=== PATIENT | female | born 1965 | race Caucasian/White ===

== ENCOUNTER 2021-09-01 23:49 | Emergency (ER) | payer BC ==
[~2021-09-01] VITALS: Ht 162.5 cm; Wt 127.0 kg
[2021-09-02] MEDS ORDERED: SEPTDS PO (00:22)
== END 2021-09-02 00:26 | disposition home or self-care (01) ==
LOC: ED 23:49
DX: L03.115 Cellulitis of right lower limb (principal)

== ENCOUNTER → 2021-09-02 | Outpatient (CLI) | payer BC ==
[~2021-09-02] MED LIST: SEPTDS PO
== END | disposition home or self-care (01) ==
LOC: US 13:55
PROVIDERS: ATTEND Emergency Medicine
DX: I82.5Z1 Chronic embolism and thrombosis of unspecified deep veins of right distal lower extremity (principal)

== ENCOUNTER 2023-07-25 11:42 | Emergency (ER) | payer BC ==
[~2023-07-25] VITALS: Ht 162.5 cm; Wt 158.8 kg
[2023-07-25] MEDS ORDERED: CYCLOBENZAPRINE5 M3 PO (11:56)
[2023-07-25] MEDS ORDERED: HYDROCODONE-AC1 EAC2 PO (11:56)
[2023-07-25] MEDS ORDERED: DERMACINRX LID1 EACH T (11:57)
[2023-07-25] MEDS ORDERED: [UNRECOGNIZED DRUG - OTHER] SQ (11:57)
[2023-07-25] MEDS ORDERED: DULOXETINE HCL60 MG PO (11:57)
[2023-07-25] MEDS ORDERED: NAPROXEN500 MG PO (11:57)
[2023-07-25] MEDS ORDERED: LEVOTHYROXINE150 MCG PO (11:57)
[2023-07-25] MEDS ORDERED: Ketorolac Tromethamine 30 MG/ML VIAL IM ONE (12:10)
[2023-07-25 12:24] LABS: BASO % 0.3 % (0.0-1.0); EOS # 0.2 10*3/uL (0.0-0.4); EOS % 2.6 % (1.0-4.0); HEMATOCRIT 45.9 % (37.0-47.0); LYMPH # 1.5 10*3/uL (1.3-4.4); LYMPH % 17.2 % (27.0-41.0); MEAN CELL VOLUME 101.3 fl (81.0-99.0); MEAN CORPUSCULAR HGB 32.7 pg (27.0-31.0); MEAN CORPUSCULAR HGB CONC 32.2 g/dl (33.0-37.0); MEAN PLATELET VOLUME 9.1 fl (9.6-12.3); MONO # 0.8 10*3/uL (0.1-1.0); MONO % 9.1 % (3.0-9.0); NEUT # 6.3 10*3/uL (2.3-7.9); NEUT % 69.9 % (47.0-73.0); PLATELET COUNT AUTOMATED 187 10*3/uL (130-400); RED BLOOD COUNT 4.53 10*6/uL (4.10-5.10); RED CELL DISTRI WIDTH 13.5 % (0-14.5); WHITE BLOOD COUNT 8.9 10*3/uL (4.8-10.8)
[2023-07-25 12:45] LABS: BUN 20 mg/dl (9-23); CHLORIDE 101 mmol/L (98-107); POTASSIUM 4.7 mmol/L (3.4-5.1)
[2023-07-25] MEDS ORDERED: NAPROSYN500 MG PO (14:22)
[2023-07-25] MEDS ORDERED: ZANAFLEX4 MG PO (14:22)
== END 2023-07-25 14:33 | disposition home or self-care (01) ==
LOC: ED 11:42
PROVIDERS: Nurse Practitioner Family
DX: S20.212A Contusion of left front wall of thorax, initial encounter (principal); Z20.822 Contact with and (suspected) exposure to COVID-19; J06.9 Acute upper respiratory infection, unspecified; Z88.5 Allergy status to narcotic agent; Z86.718 Personal history of other venous thrombosis and embolism; X58.XXXA Exposure to other specified factors, initial encounter; Y93.89 Activity, other specified; Y92.89 Other specified places as the place of occurrence of the external cause; Y99.8 Other external cause status

== ENCOUNTER 2023-10-19 19:23 | Emergency (ER) | payer BC ==
[~2023-10-19] VITALS: Ht 162.5 cm; Wt 163.3 kg
[~2023-10-19 19:23] MED LIST changes: +CYCLOBENZAPRINE5 M3 PO; +DERMACINRX LID1 EACH T; +DULOXETINE HCL60 MG PO; +HYDROCODONE-AC1 EAC2 PO; +LEVOTHYROXINE150 MCG PO; +NAPROSYN500 MG PO; +NAPROXEN500 MG PO; +ZANAFLEX4 MG PO; +[UNRECOGNIZED DRUG - OTHER] SQ
[2023-10-19] MEDS ORDERED: HYDROCODONE-AC1 EAC2 PO (19:43)
[2023-10-19] MEDS ORDERED: HYDROCODONE-AC1 EAC1 PO (21:40)
== END 2023-10-19 21:56 | disposition home or self-care (01) ==
LOC: ED 19:23
DX: S80.02XA Contusion of left knee, initial encounter (principal); S50.02XA Contusion of left elbow, initial encounter; Z88.5 Allergy status to narcotic agent; Z79.899 Other long term (current) drug therapy; W18.09XA Striking against other object with subsequent fall, initial encounter; Y93.89 Activity, other specified; Y92.89 Other specified places as the place of occurrence of the external cause; Y99.8 Other external cause status

== ENCOUNTER → 2023-10-26 | Outpatient (CLI) | payer BC ==
[~2023-10-26] MED LIST changes: +HYDROCODONE-AC1 EAC1 PO
[2023-10-26 16:00] LABS: BASO % 0.4 % (0.0-1.0); EOS # 0.2 10*3/uL (0.0-0.4); EOS % 3.1 % (1.0-4.0); HEMATOCRIT 35.4 % (37.0-47.0); LYMPH # 1.6 10*3/uL (1.3-4.4); LYMPH % 20.8 % (27.0-41.0); MEAN CORPUSCULAR HGB 33.8 pg (27.0-31.0); MEAN CORPUSCULAR HGB CONC 31.9 g/dl (33.0-37.0); MEAN PLATELET VOLUME 9.6 fl (9.6-12.3); MONO # 0.7 10*3/uL (0.1-1.0); MONO % 9.5 % (3.0-9.0); NEUT # 5.1 10*3/uL (2.3-7.9); NEUT % 65.6 % (47.0-73.0); PLATELET COUNT AUTOMATED 171 10*3/uL (130-400); RED BLOOD COUNT 3.34 10*6/uL (4.10-5.10); RED CELL DISTRI WIDTH 15.6 % (0-14.5); WHITE BLOOD COUNT 7.8 10*3/uL (4.8-10.8)
== END | disposition home or self-care (01) ==
LOC: LAB 15:27
PROVIDERS: ATTEND Family Medicine
DX: S40.022A Contusion of left upper arm, initial encounter (principal); T14.8XXA Other injury of unspecified body region, initial encounter; S40.029A Contusion of unspecified upper arm, initial encounter; E03.4 Atrophy of thyroid (acquired); X58.XXXA Exposure to other specified factors, initial encounter; Y93.89 Activity, other specified; Y92.89 Other specified places as the place of occurrence of the external cause; Y99.8 Other external cause status

== ENCOUNTER 2024-06-26 14:09 | Emergency (ER) | payer BC ==
[~2024-06-26] VITALS: Ht 162.5 cm; Wt 163.3 kg
[2024-06-26 14:43] LABS: HEMATOCRIT 29.3 % (37.0-47.0); MEAN CELL VOLUME 86.4 fl (81.0-99.0); MEAN CORPUSCULAR HGB 25.7 pg (27.0-31.0); MEAN CORPUSCULAR HGB CONC 29.7 g/dl (33.0-37.0); MEAN PLATELET VOLUME 8.7 fl (9.6-12.3); NUCLEATED RED BLOOD CELL 0.1 10*3/uL (0.0-0.0); NUCLEATED RED BLOOD CELL 0.5 % (0.0-0.0); PLATELET COUNT AUTOMATED 333 10*3/uL (130-400); RED BLOOD COUNT 3.39 10*6/uL (4.10-5.10); RED CELL DISTRI WIDTH 22.5 % (0-14.5); WHITE BLOOD COUNT 10.4 10*3/uL (4.8-10.8)
[2024-06-26 14:45] LABS: MANUAL DIFF REFLEX YES
[2024-06-26 15:09] LABS: BUN 15 mg/dl (9-23); CHLORIDE 100 mmol/L (98-107); POTASSIUM 4.3 mmol/L (3.4-5.1)
[2024-06-26 15:31] LABS: PLATELET SUFFICIENCY NORMAL (NORMAL); POLYCHROMASIA SLIGHT; TOTAL CELLS COUNTED 100 #CELLS
[2024-06-26 15:32] LABS: OVALOCYTES FEW
== END 2024-06-26 15:36 | disposition home or self-care (01) ==
LOC: ED 14:09
PROVIDERS: Internal Medicine
DX: Z47.1 Aftercare following joint replacement surgery (principal); Z79.899 Other long term (current) drug therapy; Z88.5 Allergy status to narcotic agent

== ENCOUNTER → 2024-08-08 | Outpatient (CLI) | payer BC | END | disposition home or self-care (01) | LOC: WOUNDCARE 02:31 | PROVIDERS: ATTEND Nurse Practitioner Family | DX: T81.31XA Disruption of external operation (surgical) wound, not elsewhere classified, initial encounter (principal); L97.822 Non-pressure chronic ulcer of other part of left lower leg with fat layer exposed; I87.2 Venous insufficiency (chronic) (peripheral); S81.802A Unspecified open wound, left lower leg, initial encounter; I10 Essential (primary) hypertension; F17.210 Nicotine dependence, cigarettes, uncomplicated; Z98.890 Other specified postprocedural states; Z79.82 Long term (current) use of aspirin; Z79.899 Other long term (current) drug therapy; X58.XXXA Exposure to other specified factors, initial encounter; Y93.89 Activity, other specified; Y92.89 Other specified places as the place of occurrence of the external cause; Y99.8 Other external cause status; Y83.8 Other surgical procedures as the cause of abnormal reaction of the patient, or of later complication, without mention of misadventure at the time of the procedure ==

== ENCOUNTER → 2024-08-14 | Outpatient (CLI) | payer BC | LOC: WOUNDCARE 00:37 | PROVIDERS: ATTEND Nurse Practitioner Family | DX: T81.31XD Disruption of external operation (surgical) wound, not elsewhere classified, subsequent encounter (principal); T81.89XD Other complications of procedures, not elsewhere classified, subsequent encounter; L97.822 Non-pressure chronic ulcer of other part of left lower leg with fat layer exposed; I87.2 Venous insufficiency (chronic) (peripheral); S81.802D Unspecified open wound, left lower leg, subsequent encounter; I10 Essential (primary) hypertension; F17.210 Nicotine dependence, cigarettes, uncomplicated; Z98.890 Other specified postprocedural states; Z79.899 Other long term (current) drug therapy; Z79.82 Long term (current) use of aspirin; X58.XXXD Exposure to other specified factors, subsequent encounter; Y83.8 Other surgical procedures as the cause of abnormal reaction of the patient, or of later complication, without mention of misadventure at the time of the procedure ==

== ENCOUNTER → 2024-08-21 | Outpatient (CLI) | payer BC | END | disposition home or self-care (01) | LOC: WOUNDCARE 03:12 | PROVIDERS: ATTEND Nurse Practitioner Family | DX: T81.31XD Disruption of external operation (surgical) wound, not elsewhere classified, subsequent encounter (principal); L97.822 Non-pressure chronic ulcer of other part of left lower leg with fat layer exposed; I87.2 Venous insufficiency (chronic) (peripheral); S81.802D Unspecified open wound, left lower leg, subsequent encounter; I10 Essential (primary) hypertension; F17.210 Nicotine dependence, cigarettes, uncomplicated; Z98.890 Other specified postprocedural states; Z79.899 Other long term (current) drug therapy; Z79.82 Long term (current) use of aspirin; X58.XXXD Exposure to other specified factors, subsequent encounter; Y83.8 Other surgical procedures as the cause of abnormal reaction of the patient, or of later complication, without mention of misadventure at the time of the procedure ==

== ENCOUNTER → 2024-09-04 | Outpatient (CLI) | payer BC | END | disposition home or self-care (01) | LOC: WOUNDCARE 02:22 | PROVIDERS: ATTEND Nurse Practitioner Family | DX: T81.31XD Disruption of external operation (surgical) wound, not elsewhere classified, subsequent encounter (principal); T81.89XD Other complications of procedures, not elsewhere classified, subsequent encounter; S81.801D Unspecified open wound, right lower leg, subsequent encounter; L97.822 Non-pressure chronic ulcer of other part of left lower leg with fat layer exposed; I87.2 Venous insufficiency (chronic) (peripheral); I10 Essential (primary) hypertension; F17.210 Nicotine dependence, cigarettes, uncomplicated; Z98.890 Other specified postprocedural states; Z79.899 Other long term (current) drug therapy; Z79.82 Long term (current) use of aspirin; Y83.8 Other surgical procedures as the cause of abnormal reaction of the patient, or of later complication, without mention of misadventure at the time of the procedure; X58.XXXD Exposure to other specified factors, subsequent encounter ==

== ENCOUNTER → 2024-10-02 | Outpatient (CLI) | payer BC | END | disposition home or self-care (01) | LOC: WOUNDCARE 04:21 | PROVIDERS: ATTEND Nurse Practitioner Family | DX: T81.31XD Disruption of external operation (surgical) wound, not elsewhere classified, subsequent encounter (principal); L97.822 Non-pressure chronic ulcer of other part of left lower leg with fat layer exposed; I87.2 Venous insufficiency (chronic) (peripheral); S81.802D Unspecified open wound, left lower leg, subsequent encounter; I10 Essential (primary) hypertension; F17.210 Nicotine dependence, cigarettes, uncomplicated; Z98.890 Other specified postprocedural states; Z79.899 Other long term (current) drug therapy; Z79.82 Long term (current) use of aspirin; X58.XXXD Exposure to other specified factors, subsequent encounter; Y83.8 Other surgical procedures as the cause of abnormal reaction of the patient, or of later complication, without mention of misadventure at the time of the procedure ==

== ENCOUNTER → 2024-10-26 | Outpatient (CLI) | payer BC | END | disposition home or self-care (01) | LOC: WOUNDCARE 01:15 | PROVIDERS: ATTEND Nurse Practitioner Primary Care | DX: T81.31XD Disruption of external operation (surgical) wound, not elsewhere classified, subsequent encounter (principal); T81.89XD Other complications of procedures, not elsewhere classified, subsequent encounter; S81.802D Unspecified open wound, left lower leg, subsequent encounter; L97.822 Non-pressure chronic ulcer of other part of left lower leg with fat layer exposed; I87.2 Venous insufficiency (chronic) (peripheral); I10 Essential (primary) hypertension; F17.210 Nicotine dependence, cigarettes, uncomplicated; Z98.890 Other specified postprocedural states; X58.XXXD Exposure to other specified factors, subsequent encounter; Y83.8 Other surgical procedures as the cause of abnormal reaction of the patient, or of later complication, without mention of misadventure at the time of the procedure ==

== ENCOUNTER → 2024-11-27 | Outpatient (CLI) | payer BC ==
[2024-11-27 16:10] LABS: BASO # 0.0 10*3/uL (0.0-0.1); BASO % 0.5 % (0.0-1.0); EOS # 0.3 10*3/uL (0.0-0.4); EOS % 3.6 % (1.0-4.0); MEAN CELL VOLUME 78.2 fl (81.0-99.0); MEAN CORPUSCULAR HGB 21.8 pg (27.0-31.0); MEAN PLATELET VOLUME 9.1 fl (9.6-12.3); MONO # 0.9 10*3/uL (0.1-1.0); MONO % 11.4 % (3.0-9.0); NEUT # 5.4 10*3/uL (2.3-7.9); NEUT % 64.9 % (47.0-73.0); NUCLEATED RED BLOOD CELL 0.0 % (0.0-0.0); NUCLEATED RED BLOOD CELL 0.0 10*3/uL (0.0-0.0); PLATELET COUNT AUTOMATED 270 10*3/uL (130-400); RED CELL DISTRI WIDTH 21.2 % (0-14.5)
[2024-11-27 16:36] LABS: BUN 15 mg/dl (9-23); SGPT/ALT 11 U/L (5-49)
== END | disposition home or self-care (01) ==
LOC: WOUNDCARE 02:01 → LAB 04:05 → WOUNDCARE 04:05
PROVIDERS: Specialist; ATTEND Nurse Practitioner Family
DX: T81.31XD Disruption of external operation (surgical) wound, not elsewhere classified, subsequent encounter (principal); L97.822 Non-pressure chronic ulcer of other part of left lower leg with fat layer exposed; S81.802D Unspecified open wound, left lower leg, subsequent encounter; I87.2 Venous insufficiency (chronic) (peripheral); I10 Essential (primary) hypertension; F17.200 Nicotine dependence, unspecified, uncomplicated; X58.XXXD Exposure to other specified factors, subsequent encounter; Y83.8 Other surgical procedures as the cause of abnormal reaction of the patient, or of later complication, without mention of misadventure at the time of the procedure

== ENCOUNTER → 2024-12-11 | Outpatient (CLI) | payer BC | END | disposition home or self-care (01) | LOC: WOUNDCARE 02:40 → LAB 05:36 → WOUNDCARE 05:36 | PROVIDERS: ATTEND Nurse Practitioner Family | DX: T81.31XD Disruption of external operation (surgical) wound, not elsewhere classified, subsequent encounter (principal); S81.802D Unspecified open wound, left lower leg, subsequent encounter; L97.822 Non-pressure chronic ulcer of other part of left lower leg with fat layer exposed; I87.2 Venous insufficiency (chronic) (peripheral); I10 Essential (primary) hypertension; F17.210 Nicotine dependence, cigarettes, uncomplicated; Z79.82 Long term (current) use of aspirin; Z79.899 Other long term (current) drug therapy; Z96.651 Presence of right artificial knee joint; Z98.890 Other specified postprocedural states; X58.XXXD Exposure to other specified factors, subsequent encounter; Y83.8 Other surgical procedures as the cause of abnormal reaction of the patient, or of later complication, without mention of misadventure at the time of the procedure ==

== ENCOUNTER → 2024-12-25 | Outpatient (CLI) | payer BC | END | disposition home or self-care (01) | LOC: WOUNDCARE 02:17 | PROVIDERS: ATTEND Nurse Practitioner Family | DX: T81.31XD Disruption of external operation (surgical) wound, not elsewhere classified, subsequent encounter (principal); S81.802D Unspecified open wound, left lower leg, subsequent encounter; L97.822 Non-pressure chronic ulcer of other part of left lower leg with fat layer exposed; I87.2 Venous insufficiency (chronic) (peripheral); I10 Essential (primary) hypertension; Z98.890 Other specified postprocedural states; Z79.82 Long term (current) use of aspirin; Z79.899 Other long term (current) drug therapy; X58.XXXD Exposure to other specified factors, subsequent encounter; Y83.8 Other surgical procedures as the cause of abnormal reaction of the patient, or of later complication, without mention of misadventure at the time of the procedure ==

== ENCOUNTER → 2025-01-15 | Outpatient (CLI) | payer BC | END | disposition home or self-care (01) | LOC: WOUNDCARE 02:57 | PROVIDERS: ATTEND Nurse Practitioner Family | DX: T81.31XD Disruption of external operation (surgical) wound, not elsewhere classified, subsequent encounter (principal); T81.89XD Other complications of procedures, not elsewhere classified, subsequent encounter; S81.802D Unspecified open wound, left lower leg, subsequent encounter; L97.822 Non-pressure chronic ulcer of other part of left lower leg with fat layer exposed; I87.2 Venous insufficiency (chronic) (peripheral); I10 Essential (primary) hypertension; Z98.890 Other specified postprocedural states; Z79.82 Long term (current) use of aspirin; Z79.899 Other long term (current) drug therapy; X58.XXXD Exposure to other specified factors, subsequent encounter; Y83.8 Other surgical procedures as the cause of abnormal reaction of the patient, or of later complication, without mention of misadventure at the time of the procedure ==

== ENCOUNTER 2025-02-04 10:51 | Emergency (ER) | payer BC ==
[~2025-02-04] VITALS: Ht 162.5 cm; Wt 163.3 kg
[2025-02-04 11:50] LABS: BASO # 0.0 10*3/uL (0.0-0.1); BASO % 0.4 % (0.0-1.0); EOS # 0.2 10*3/uL (0.0-0.4); EOS % 2.5 % (1.0-4.0); MEAN CELL VOLUME 78.8 fl (81.0-99.0); MEAN CORPUSCULAR HGB 22.8 pg (27.0-31.0); MEAN PLATELET VOLUME 8.8 fl (9.6-12.3); MONO # 1.0 10*3/uL (0.1-1.0); MONO % 12.1 % (3.0-9.0); NEUT # 5.9 10*3/uL (2.3-7.9); NEUT % 70.8 % (47.0-73.0); NUCLEATED RED BLOOD CELL 0.0 % (0.0-0.0); NUCLEATED RED BLOOD CELL 0.0 10*3/uL (0.0-0.0); PLATELET COUNT AUTOMATED 362 10*3/uL (130-400); RED CELL DISTRI WIDTH 23.0 % (0-14.5)
[2025-02-04 11:59] LABS: BUN 26 mg/dl (9-23)
[2025-02-04] MEDS ORDERED: NAPROSYN500 MG PO (12:26)
== END 2025-02-04 14:08 | disposition home or self-care (01) ==
LOC: ED 10:51
PROVIDERS: Nurse Practitioner Family
DX: M25.462 Effusion, left knee (principal); G89.29 Other chronic pain; M25.562 Pain in left knee; Z88.5 Allergy status to narcotic agent; Z98.890 Other specified postprocedural states